=== PATIENT | male | born 2000 | race Caucasian/White ===

== ENCOUNTER 2018-08-21 13:22 | Emergency (ER) | payer OTHER ==
[~2018-08-21] VITALS: Ht 188 cm; Wt 78.2 kg
[2018-08-21 13:24] VITALS: BP 129/81; TEMP 98.5
[2018-08-21] MEDS ORDERED: PHENERGAN 25 TA25 MG PO (15:15)
[2018-08-21 15:26] VITALS: PULSE 70
== END 2018-08-21 15:26 | disposition home or self-care (01) ==
LOC: COL.ER 13:22
DX: R51 Headache (principal)